=== PATIENT | female | born 1955 | race African-American/Black ===

== ENCOUNTER 2020-03-13 09:23 | Outpatient (CLI) | payer OTHER ==
--- NOTE | 2020-03-13 13:29 | Ultrasound Report ---
ULTRASOUND RENAL INDICATION / CLINICAL INFORMATION: Q61.2Polycystic kidney, adult type/N18.4Chronic kidney disease, s. COMPARISON: None available. FINDINGS: RIGHT KIDNEY: Length = 19.4 cm. - Parenchyma: Polycystic morphology. - Hydronephrosis: None. - Cyst or mass: Innumerable cysts. Largest one measures 10.6 cm and appears simple. No definite solid mass identified. - Stones: None seen. LEFT KIDNEY: Length = 15.9 cm. - Parenchyma: Polycystic morphology. - Hydronephrosis: None. - Cyst or mass: Innumerable cysts with the largest measuring 3.7 cm and appears simple. No definite s olid mass identified. - Stones: None seen. URINARY BLADDER: No significant abnormality. FREE FLUID: None. ADDITIONAL FINDINGS: None. IMPRESSION: 1. Polycystic morphology kidneys as described above. No definite solid mass or evidence of obstructiv e uropathy. Signer Name: Destin Chandra MD Signed: 03/13/2020 1:24 PM Workstation Name: [id number]
== END 2020-03-13 09:24 | disposition home or self-care (01) ==
LOC: US 09:23
PROVIDERS: ATTEND Internal Medicine Nephrology
DX: Q61.3 Polycystic kidney, unspecified (principal); Q16 Congenital malformations of ear causing impairment of hearing; N18.4 Chronic kidney disease, stage 4 (severe)
CPT/HCPCS: 76770